=== PATIENT | male | born 1955 | race Two or more races ===

== ENCOUNTER 2022-05-08 16:05 | Emergency (ER) | payer BC, OTHER ==
[~2022-05-08] VITALS: Ht 172.7 cm; Wt 80.0 kg
[2022-05-08] MEDS ORDERED: cloNIDine HCL 0.1 MG TAB PO ONE (16:30)
[2022-05-08 16:57] VITALS: BP 194/96
[2022-05-08] MEDS ORDERED: TETANUS-DIPTH-ACEL PERTUSSIS 0.5ML SYR Tdap IM ONE (17:00)
[2022-05-08] MEDS ORDERED: LIDOCAINE 1% HCL (LOCAL ANESTH.) INJ 20ML MDV IJ ONE (17:00)
[2022-05-08] MEDS ORDERED: CEPH-510 PO (17:07)
== END 2022-05-08 17:51 | disposition home or self-care (01) ==
LOC: ER 16:05
DX: S61.210A Laceration without foreign body of right index finger without damage to nail, initial encounter (principal); I10 Essential (primary) hypertension; E11.9 Type 2 diabetes mellitus without complications; W23.0XXA Caught, crushed, jammed, or pinched between moving objects, initial encounter; Y93.89 Activity, other specified; Y92.89 Other specified places as the place of occurrence of the external cause; Y99.8 Other external cause status
CPT/HCPCS: 12002; 90471; 90715; 99283; J2001